=== PATIENT | male | born 1965 | race Caucasian/White ===

== ENCOUNTER 2023-01-30 14:46 | Emergency (ER) | payer OTHER ==
[~2023-01-30] VITALS: Ht 180.3 cm; Wt 113.4 kg
[2023-01-30 15:15] VITALS: BP 128/57; PULSE 102; RESP 18; TEMP 97; O2SAT 98
[2023-01-30] MEDS ORDERED: KETOROLAC 30 MG/ML VIAL IM ONE (17:10)
[2023-01-30] MEDS ORDERED: IBUP-2213 PO (18:27)
[2023-01-30] MEDS ORDERED: ACET-10509 PO (18:27)
== END 2023-01-30 19:08 | disposition home or self-care (01) ==
LOC: MED 14:46
DX: M25.561 Pain in right knee (principal); I10 Essential (primary) hypertension; Z79.899 Other long term (current) drug therapy; Z79.1 Long term (current) use of non-steroidal anti-inflammatories (NSAID)
CPT/HCPCS: 73562; 93971; 96372; 99285; J1885